=== PATIENT | male | born 1980 | race Caucasian/White ===

== ENCOUNTER 2018-12-19 15:15 | Emergency (ER) | payer OTHER ==
[~2018-12-19] VITALS: Ht 180.3 cm; Wt 144.5 kg
[2018-12-19 15:19] VITALS: Ht 180.3 cm; Wt 144.5 kg
[2018-12-19] MEDS ORDERED: NORVASC2.5 MG PO (15:21)
[2018-12-19] MEDS ORDERED: LISINOPRIL40 MG PO (15:21)
[2018-12-19] MEDS ORDERED: BAYER CHEWABLE81 MG PO (15:21)
[2018-12-19] MEDS ORDERED: HYDROCHLOROTHIA25 MG PO (15:21)
[2018-12-19] MEDS ORDERED: ZYLOPRIM300 MG PO (15:22)
[2018-12-19 16:34] LABS: BASOPHILS 0.2 % (0-2); EOSINOPHILS 0.7 % (0-7); HEMATOCRIT 48.4 % (42.0-54.0); HEMOGLOBIN 17.2 g/dL (13.5-17.5); IMMATURE GRANULOCYTES 0.3 % (0-5); LYMPHOCYTES 15.1 % (15-50); MCH 30.8 pg (26.0-34.0); MCHC 35.5 g/dL (31.0-37.0); MCV 86.7 fL (80.0-100.0); MEAN PLATELET VOLUME 9.5 fL (7.4-10.4); MONOCYTES 11.1 % (2-11); NEUTROPHILS 72.6 % (40-80); PLATELET COUNT 212 10x3/uL (130-400); RBC 5.58 10x6/uL (4.20-6.10); RDW 14.1 % (11.5-14.5); WBC 15.1 10x3/uL (4.8-10.8)
[2018-12-19 16:48] LABS: ALBUMIN 4.2 g/dL (3.4-5.0); ALKALINE PHOSPHATASE 73 U/L (46-116); ALT (SGPT) 71 U/L (10-68); BILIRUBIN - TOTAL 0.63 mg/dL (0.2-1.3); CALC OSMOLALITY 282 mosm/kg (275-300); CALCIUM 9.3 mg/dL (8.5-10.1); CARBON DIOXIDE 32.3 mmol/L (21.0-32.0); CHLORIDE - SERUM 102 mmol/L (98-107); CREATININE - SERUM 1.1 mg/dL (0.6-1.3); GLUCOSE 83 mg/dL (74-106); POTASSIUM - SERUM 3.7 mmol/L (3.5-5.1); PROTEIN - SERUM 7.8 g/dL (6.4-8.2); SODIUM 142 mmol/L (136-145); UREA NITROGEN 14 mg/dL (7-18); eGFR NON AFRICAN AMERICAN 79 mL/min (90-120)
[2018-12-19 16:52] LABS: AMYLASE - SERUM 47 U/L (25-115); LIPASE 130 U/L (73-393)
[2018-12-19 16:53] LABS: TROPONIN-I < 0.017 ng/mL (0.000-0.060)
[2018-12-19 17:05] LABS: APPEARANCE CLEAR (CLEAR); BILIRUBIN NEGATIVE (NEGATIVE); COLOR YELLOW (YELLOW); GLUCOSE NEGATIVE (NEGATIVE); KETONE NEGATIVE (NEGATIVE); NITRITE NEGATIVE (NEGATIVE); PROTEIN NEGATIVE (NEGATIVE); SPECIFIC GRAVITY 1.015 (1.005-1.020); UROBILINOGEN NORMAL (NORMAL)
[2018-12-19] MEDS ORDERED: LEVAQUIN750 MG PO (18:04)
[2018-12-19] MEDS ORDERED: FLAGYL500 MG PO (18:04)
[2018-12-19] MEDS ORDERED: TORADOL10 MG PO (18:04)
[2018-12-19 21:00] VITALS: BP 143/87
== END 2018-12-19 20:31 | disposition home or self-care (01) ==
LOC: D.ER 15:15
PROVIDERS: Emergency Medicine
DX: K57.92 Diverticulitis of intestine, part unspecified, without perforation or abscess without bleeding (principal); I10 Essential (primary) hypertension; G47.33 Obstructive sleep apnea (adult) (pediatric)

== ENCOUNTER 2019-09-16 09:36 | Day surgery (SDC) | payer OTHER ==
[~2019-09-16] VITALS: Ht 180.3 cm; Wt 143.2 kg
--- NOTE | ~2019-09-16 | OP ---
PATIENT NAME: ASHLEY BLANC MEDICAL RECORD: [id number] :76 LOCATION:D.OPS ADMISSION DATE: SURGEON: CIARAN HERNANDEZ MD DATE OF OPERATION: 09/16/2019 ADDENDUM I did not dictate the cold endoscopic biopsy. At 30 cm, there was an area that was questionable for inflammation and I performed cold endoscopic biopsies at that site. TRANSINT:[id number] Voice Confirmation ID: [id number] DOCUMENT ID: [id number] CIARAN HERNANDEZ MD CC: [id number] DICTATION DATE: 09/24/191710 FLORAL MANAGER: 09/25/19309 [facility] [place] 09/16/19 [facility] [address] [id number]
[~2019-09-16 09:36] MED LIST: BAYER CHEWABLE81 MG PO; FLAGYL500 MG PO; HYDROCHLOROTHIA25 MG PO; LEVAQUIN750 MG PO; LISINOPRIL40 MG PO; NORVASC2.5 MG PO; TORADOL10 MG PO; ZYLOPRIM300 MG PO
[2019-09-16 10:00] LABS: BASOPHILS 0.3 % (0-2); EOSINOPHILS 1.1 % (0-7); HEMATOCRIT 51.1 % (42.0-54.0); HEMOGLOBIN 17.1 g/dL (13.5-17.5); IMMATURE GRANULOCYTES 0.2 % (0-5); MCH 30.1 pg (26.0-34.0); MCHC 33.5 g/dL (31.0-37.0); MCV 89.8 fL (80.0-100.0); MEAN PLATELET VOLUME 9.2 fL (7.4-10.4); MONOCYTES 8.6 % (2-11); NEUTROPHILS 65.8 % (40-80); PLATELET COUNT 231 10x3/uL (130-400); RBC 5.69 10x6/uL (4.20-6.10); RDW 13.6 % (11.5-14.5); WBC 9.2 10x3/uL (4.8-10.8)
[2019-09-16 10:06] LABS: CALC OSMOLALITY 276 mosm/kg (275-300); CALCIUM 8.7 mg/dL (8.5-10.1); CARBON DIOXIDE 29.5 mmol/L (21.0-32.0); CHLORIDE - SERUM 104 mmol/L (98-107); CREATININE - SERUM 1.1 mg/dL (0.6-1.3); GLUCOSE 101 mg/dL (74-106); POTASSIUM - SERUM 3.5 mmol/L (3.5-5.1); SODIUM 140 mmol/L (136-145); UREA NITROGEN 8 mg/dL (7-18); eGFR NON AFRICAN AMERICAN 78 mL/min (90-120)
[2019-09-16 11:02] VITALS: BP 140/80; Ht 180.3 cm; Wt 143.2 kg
--- NOTE | 2019-09-16 15:05 | NUR ---
1415 IV DC'ED WITH CATH INTACT. DRESSING. Kehinde PhanNGlynn 1425 DRESSED. AWAAKE & ALERT. GIVEN DISCHARGE INFORMATION INCLUDING: MED REC, SHEET LISTING NSAIDS TO AVOID, RTC APPT., & POST ENDOSCOPIC D/C INSTRUCTIONS SHEET. PT VOICED UNDERSTANDING. TO PRIVATE CAR PER WHEELCHAIR BY STAFF. HOME WITH DOYLE JOHNS, GIRLFRIEND. Kehinde BUENO R.N.
--- NOTE | 2019-09-18 16:30 | HP ---
PATIENT: ASHLEY BLANC MEDICAL RECORD: [id number] ACCOUNT: [id number] LOCATION:STEVE : 76 ADMISSION DATE: 09/16/19 PCP: QUE MINAYA DO HISTORY AND PHYSICAL EXAMINATION PREOPERATIVE DIAGNOSIS: Here for colonoscopy. HISTORY OF PRESENT ILLNESS: The patient has had fecal occult blood positivity. Also, hematochezia. Also, two prior episodes of diverticulitis. HOME MEDICINES: Listed above. He is no longer on Flagyl or Levaquin. ALLERGIES: No known drug allergies. SOCIAL HISTORY: He is a smoker. PAST MEDICAL AND SURGICAL HISTORY: Sleep apnea, he is on BiPAP, gout, tonsillectomy, adenoidectomy, diverticulitis, hypertension. PHYSICAL EXAMINATION: GENERAL: The patient does not appear acutely ill. He does not appear chronically ill. VITAL SIGNS: Reviewed. EARS: External ears appear normal. EYES: Extraocular movements are intact. NECK: Trachea is midline. CHEST: No intercostal retractions. PULMONARY: Nonlabored, no stridor. IMPRESSION: History of diverticulitis times 2, history of fecal occult blood positivity, also hematochezia. PLAN: Colonoscopy. TRANSINT:[id number] Voice Confirmation ID: [id number] DOCUMENT ID: [id number] CIARAN HERNANDEZ MD at 1630 CC: QUE MINAYA DO [id number] DICTATION DATE: 09/16/19 1309 KNIFE BLADE POLISHER: 09/16/19 1443 [facility] 09/16/19 [id number] [place] [address]
--- NOTE | 2019-09-25 16:26 | OP ---
PATIENT NAME: ASHLEY BLANC MEDICAL RECORD: [id number] :76 LOCATION:D.OPS ADMISSION DATE: SURGEON: CIARAN HERNANDEZ MD DATE OF OPERATION: 09/16/2019 PREOPERATIVE DIAGNOSES: 1. History of 2 episodes of diverticulitis. 2. Fecal occult blood positivity. 3. Hematochezia. POSTOPERATIVE DIAGNOSES: 1. History of 2 episodes of diverticulitis. 2. Fecal occult blood positivity. 3. Hematochezia. 4. One area of inflammation. This did not appear to be a polyp. This is perhaps some inflammation over a submucosal lipoma. The prep was inadequate. I can only exclude obstructing colonic or rectal masses. PROCEDURES: 1. Total colonoscopy to cecum. 2. Cold endoscopic biopsies. SURGEON: Ciaran Hernandez MD WOOD REPATCHER: None. BLOOD LOSS: Minimal. ANESTHESIA: IV sedation. COMPLICATIONS: None. ENDOSCOPIC COURSE: The patient was conveyed to the endoscopy suite electively on 09/16/2019. IV sedation was induced by the anesthesia staff. The patient was placed in the Ortega position. A digital rectal examination was performed. Prostate was symmetric and without nodules. A colonoscope was inserted through the anus. It was easily advanced to the cecum. Following withdrawal, I irrigated and aspirated extensively. A combination of normal imaging and narrow band imaging were utilized. There was a great deal of solid fecal material present within the colon and rectum. I dragged the folds. A retroflexed view was obtained in the rectum. I then unretroflexed the scope and removed it under direct vision. I will see the patient in my office in 2-3 weeks. As the patient has fecal occult blood positivity, I am going to recommend that he undergo another EGD and colonoscopy in 1 year. He likely will require a 2-day prep. TRANSINT:[id number] Voice Confirmation ID: [id number] DOCUMENT ID: [id number] 09/25/2019 Edited for addendum, [email or web address]. ADDENDUM: I did not dictate the cold endoscopic biopsy. At 30 cm, there was an area that was questionable for inflammation and I performed cold endoscopic biopsies at that site. OPERATIVE REPORT [id number] ASHLEY BLANC Dictation ID [id number] CIARAN HERNANDEZ MD at 1626 CC: QUE MINAYA DO [id number] DICTATION DATE: 09/16/19 1336 VAN DRIVER HELPER: 09/16/19 2340 [facility] [place] 09/16/19 [facility] [address] [place] [address]
== END 2019-09-16 14:25 | disposition home or self-care (01) ==
LOC: D.OPS 09:36
PROVIDERS: Anesthesiology; ATTEND Surgery
DX: K92.1 Melena (principal); Z87.19 Personal history of other diseases of the digestive system

== ENCOUNTER → 2019-11-13 08:33 | Outpatient (CLI) | payer OTHER ==
[2019-09-16 11:02] VITALS: BMI 44.0
== END | disposition home or self-care (01) ==
LOC: D.LAB 08:33
PROVIDERS: ATTEND Surgery
DX: D35.00 Benign neoplasm of unspecified adrenal gland (principal)

== ENCOUNTER → 2020-06-09 10:48 | Outpatient (CLI) | payer BC ==
[2020-03-16 06:27] VITALS: BMI 44.7
[~2020-06-09 10:48] MED LIST changes: +CYCLOBENZAPRINE10 MG PO; +HYDROCODON-ACE1 EA10 PO
== END | disposition home or self-care (01) ==
LOC: D.CT 05-12 11:00
PROVIDERS: ATTEND Nurse Practitioner
DX: D35.01 Benign neoplasm of right adrenal gland (principal); D35.02 Benign neoplasm of left adrenal gland